=== PATIENT | female | born 1995 | race Asian ===

== ENCOUNTER → 2017-02-24 | Outpatient (CLI) | payer SELFPAY | END | disposition home or self-care (01) | LOC: RAD 12:08 | DX: R07.81 Pleurodynia (principal); Z90.2 Acquired absence of lung [part of]; Z86.11 Personal history of tuberculosis | CPT/HCPCS: 71101 ==

== ENCOUNTER 2017-11-02 20:52 | Inpatient (IN) | payer BC ==
[~2017-11-02] VITALS: Ht 165.1 cm; Wt 49.2 kg
[2017-11-02 22:41] LABS: HEMATOCRIT 35.1 % (36.0-46.0); HEMOGLOBIN 11.5 G/DL (11.9-15.5); MCH 28.5 PG (29.0-34.0); MCHC 32.8 G/DL (30.0-36.0); MCV 86.9 FL (83-99); PLATELET COUNT 243 K/uL (156-360); RBC DIS.WIDTH-CV 13.1 % (11.8-14.6); RBC DIS.WIDTH-SD 41.1 % (39-53); RED BLOOD COUNT 4.04 M/uL (3.80-5.20); WHITE BLOOD COUNT 8.1 K/uL (4.1-10.2)
[2017-11-02 22:47] LABS: ALBUMIN 4.1 g/dL (3.2-4.8)
[2017-11-02 22:48] LABS: CHLORIDE 105 mEq/L (99-109); SODIUM 141 mEq/L (136-147)
[2017-11-02 22:50] LABS: GLUCOSE 85 mg/dL (70-99)
[2017-11-02 22:52] LABS: TOTAL BILIRUBIN 0.2 mg/dL (0.0-1.0)
[2017-11-02 22:53] LABS: ALKALINE PHOSPHATASE 80 IU/L (3-129)
[2017-11-02 22:54] LABS: CREATININE 0.8 mg/dL (0.6-1.3); GFR ESTIMATE (CALCULATED) > 59 mL/min/
[2017-11-02 22:55] LABS: AST (GOT) 28 IU/L (2-34); UREA NITROGEN (BUN) 16 mg/dL (9-23)
[2017-11-02 22:57] LABS: ALT (GPT) 12 IU/L (3-49)
[2017-11-02 23:02] LABS: QUANTITATIVE HCG < 4.0 MIU/ML
[2017-11-03 06:34] LABS: HEMATOCRIT 31.3 % (36.0-46.0); HEMOGLOBIN 10.4 G/DL (11.9-15.5); MCV 85.5 FL (83-99)
[2017-11-03 09:50] VITALS: BP 120/58
[2017-11-03 11:36] LABS: HIV-1/2 AB/AG COMBO Nonreactive
[2017-11-03 15:17] VITALS: BP 140/68
[2017-11-03 23:14] VITALS: BP 98/57
[2017-11-04 05:24] LABS: BASOPHIL (%) 0.3 % (0-1); EOSINOPHIL (%) 0.1 % (0-5); HEMATOCRIT 33.4 % (36.0-46.0); IMMATURE GRANULOCYTE (%) 0.4 % (0.0-0.7); LYMPHOCYTE (%) 9.2 % (15-42); MCH 28.4 PG (29.0-34.0); MCHC 32.9 G/DL (30.0-36.0); MCV 86.3 FL (83-99); MONOCYTE (%) 1.2 % (3-12); MONOCYTE COUNT 0.1 K/uL (0-0.8); NEUTROPHIL (%) 88.8 % (45-76); NEUTROPHIL COUNT 9.3 K/uL (1.8-6.4); PLATELET COUNT 244 K/uL (156-360); RBC DIS.WIDTH-CV 13.2 % (11.8-14.6); RBC DIS.WIDTH-SD 41.3 % (39-53); RED BLOOD COUNT 3.87 M/uL (3.80-5.20); WHITE BLOOD COUNT 10.5 K/uL (4.1-10.2)
[2017-11-04 06:20] LABS: CHLORIDE 106 MEQ/L (99-109); CREATININE 0.8 MG/DL (0.6-1.3); GFR ESTIMATE (CALCULATED) > 59 mL/min/; POTASSIUM 4.3 MEQ/L (3.7-5.4); SODIUM 138 MEQ/L (136-147); UREA NITROGEN (BUN) 15 mg/dL (9-23)
[2017-11-04 06:22] LABS: GLUCOSE 146 mg/dL (70-99)
[2017-11-04 07:42] VITALS: BP 111/56
[2017-11-04] MEDS ORDERED: STIOLTO RESPIMAT4 GM IH (12:08)
[2017-11-04] MEDS ORDERED: LEVAQUIN750 MG PO (12:09)
[2017-11-04] MEDS ORDERED: PREDNISONE10 MG PO (12:11)
== END 2017-11-04 16:33 | disposition home or self-care (01) | DRG 191 ==
LOC: EME 20:52 → EDOF 11-03 03:00 → 5SOUTH 11-03 03:00 → ENRESERV 11-03 03:02 → 5SOUTH 11-03 09:23 → ENPENDDIS 11-04 15:01 → 5SOUTH 11-04 16:33
PROVIDERS: Hospitalist; Physician Assistant
DX: J47.0 Bronchiectasis with acute lower respiratory infection (principal); J18.9 Pneumonia, unspecified organism; J20.9 Acute bronchitis, unspecified; H90.5 Unspecified sensorineural hearing loss; Z90.2 Acquired absence of lung [part of]; Z86.11 Personal history of tuberculosis; R04.2 Hemoptysis
CPT/HCPCS: 71275; 80048; 80053; 84702; 85014; 85018; 85025; 85027; 87070; 87116; 87205; 87206; 87389; 87449; 89230; 94640; 94640 76; 99202; 99281; 99285; J0456; J0692; J0696; J7512

== ENCOUNTER 2018-01-07 21:31 | Emergency (ER) | payer OTHER, BC ==
[~2018-01-07] VITALS: Ht 154.9 cm; Wt 49.0 kg
[~2018-01-07 21:31] MED LIST: LEVAQUIN750 MG PO; PREDNISONE10 MG PO; STIOLTO RESPIMAT4 GM IH
[2018-01-07 22:05] LABS: BASOPHIL (%) 0.6 % (0-1); BASOPHIL COUNT 0.1 K/uL (0-0.1); EOSINOPHIL (%) 1.5 % (0-5); EOSINOPHIL COUNT 0.2 K/uL (0-0.3); HEMATOCRIT 35.7 % (36.0-46.0); HEMOGLOBIN 11.8 G/DL (11.9-15.5); IMMATURE GRANULOCYTE (%) 0.3 % (0.0-0.7); LYMPHOCYTE (%) 25.3 % (15-42); LYMPHOCYTE COUNT 2.6 K/uL (1.0-2.8); MCH 28.4 PG (29.0-34.0); MCHC 33.1 G/DL (30.0-36.0); MCV 85.8 FL (83-99); MONOCYTE (%) 6.9 % (3-12); MONOCYTE COUNT 0.7 K/uL (0-0.8); NEUTROPHIL (%) 65.4 % (45-76); NEUTROPHIL COUNT 6.7 K/uL (1.8-6.4); PLATELET COUNT 323 K/uL (156-360); RBC DIS.WIDTH-CV 12.8 % (11.8-14.6); RBC DIS.WIDTH-SD 39.9 % (39-53); RED BLOOD COUNT 4.16 M/uL (3.80-5.20); WHITE BLOOD COUNT 10.3 K/uL (4.1-10.2)
[2018-01-07 22:23] LABS: AMYLASE 29 IU/L (1-118); CHLORIDE 106 mEq/L (99-109); SODIUM 140 mEq/L (136-147)
[2018-01-07 22:25] LABS: GLUCOSE 110 mg/dL (70-99)
[2018-01-07 22:28] LABS: SERUM ETHYL ALCOHOL < 10 mg/dL
[2018-01-07 22:29] LABS: CREATININE 0.8 mg/dL (0.6-1.3); GFR ESTIMATE (CALCULATED) > 59 mL/min/
[2018-01-07 22:30] LABS: UREA NITROGEN (BUN) 13 mg/dL (9-23)
[2018-01-07 22:32] LABS: LIPASE 9 U/L (1.0-51.0)
[2018-01-07 22:39] LABS: QUANTITATIVE HCG < 4.0 MIU/ML
[2018-01-07] MEDS ORDERED: TYLENOL EXTRA500 MG PO (23:56)
[2018-01-08 05:06] LABS: APPEARANCE CLEAR ((CLEAR)); BILIRUBIN NEGATIVE; BLOOD MODERATE; COLOR YELLOW ((YELLOW)); GLUCOSE (STRIP) NEGATIVE; KETONES NEGATIVE; LEUKOCYTES NEGATIVE; NITRITE NEGATIVE; PROTEIN (STRIP) 100; SPECIFIC GRAVITY > 1.060 (1.000-1.030); UROBILINOGEN 0.2 MG/DL (0.2-1.0)
[2018-01-08 05:08] LABS: BACTERIA NONE SEEN /HPF; EPITHELIAL CELLS 1+ /HPF; MUCUS TRACE /LPF; RED BLOOD CELLS 20-30 /HPF (0-5); UCUL ADDED? NO; WHITE BLOOD CELLS 0-5 /HPF (0-5)
[2018-01-08 05:14] LABS: AMPHETAMINE NEGATIVE (500 ng/mL); BARBITURATES NEGATIVE (200 ng/mL); BENZODIAZEPINES NEGATIVE (150 ng/mL); BUPRENORPHINE NEGATIVE (10 ng/mL); COCAINE NEGATIVE (150 ng/mL); METHADONE NEGATIVE (200 ng/mL); METHAMPHETAMINE NEGATIVE (500 ng/mL); OPIATES (MORPHINE) PRESUMPTIVE POSITIVE (100 ng/mL); OXYCODONE NEGATIVE (100 ng/mL); PHENCYCLIDINE NEGATIVE (25 ng/mL); PROPOXYPHENE NEGATIVE (300 ng/mL); THC CANNABINOIDS PRESUMPTIVE POSITIVE (50 ng/mL); TRICYCLIC ANTIDEPRESSANTS NEGATIVE (300 ng/mL)
== END 2018-01-08 08:03 | disposition short-term general hospital (02) ==
LOC: TRA 21:31
PROVIDERS: Emergency Medicine
PROC: 3E0234Z Introduction of Serum, Toxoid and Vaccine into Muscle, Percutaneous Approach (ICD-10-PCS; principal; 2018-01-07)
PROC: 0QSL0ZZ Reposition Right Tarsal, Open Approach (ICD-10-PCS; principal; 2018-01-07)
PROC: 0QSJ0ZZ Reposition Right Fibula, Open Approach (ICD-10-PCS; principal; 2018-01-07)
DX: S82.831B Other fracture of upper and lower end of right fibula, initial encounter for open fracture type I or II (principal); S92.11 Fracture of neck of talus; S92.121 Displaced fracture of body of right talus; S92.211B Displaced fracture of cuboid bone of right foot, initial encounter for open fracture; V49.9XXA Car occupant (driver) (passenger) injured in unspecified traffic accident, initial encounter; Y92.410 Unspecified street and highway as the place of occurrence of the external cause; D18.02 Hemangioma of intracranial structures; Z23 Encounter for immunization; J84.10 Pulmonary fibrosis, unspecified; H91.93 Unspecified hearing loss, bilateral
CPT/HCPCS: 70450; 71045; 71260; 72125; 72170; 73590; 73600; 73630; 73700; 74177; 80048; 81003; 82150; 83690; 84702; 84999; 85025; 86850; 86900; 86901; 93005; 99281; 99285; G0480; J0690; J2270; J2405; J3010